=== PATIENT | male | born 1995 | race Caucasian/White ===

== ENCOUNTER 2017-02-23 01:14 | Emergency (ER) | payer BC ==
[~2017-02-23] VITALS: Ht 177.8 cm; Wt 75.0 kg
[~2017-02-23 01:14] MED LIST: CETITAB27 PO
--- NOTE | 2017-02-23 01:24 | EMERGENCY ROOM VISIT NOTE ---
History Report prepared by Scribe: Naya Agrawal Under the Supervision of: Dr. Ryan Rivera M.D. First contact with patient: 01:16 Chief Complaint: ALCOHOL OVERDOSE Stated Complaint: ALCOHOL OVERDOSE History of Present Illness The patient is a 21 year old male who presents to the Emergency Room by EMS for a episode of alcohol overdose. The patient notes he feels fine. He states he has been to the ED previously for an alcohol overdose. Per EMS staff, the patient was found laying in a parking lot. Source of History: patient History Limited By: intoxication Onset: just prior to arrival Timing: other (episode) Review of Systems ROS limited secondary to intoxication Past Medical & Surgical Medical Problems: (1) No Known Active Medical Problems Family History no pertinent family history stated Social History Smoking Status: Unknown if Ever Smoked Alcohol Use: occasionally Occupation Status: student Current/Historical Medications No Active Prescriptions or Reported Meds Allergies Coded Allergies: Erythromycin (Verified Allergy, Intermediate, RASH, 02/23/17) Nut Tree (Verified Allergy, Unknown, ANAPHYLAXIS, 04/24/16) Physical Exam Vital Signs Date Time Temp Pulse Resp B/P (MAP) Pulse Ox O2 Delivery O2 Flow Rate FiO2 02/23/17 06:00 96/50 02/23/17 05:35 76 18 96 Room Air 02/23/17 05:30 95/37 02/23/17 05:12 76 02/23/17 05:05 78 15 96 Room Air 02/23/17 05:00 92/43 02/23/17 04:35 77 17 94 02/23/17 04:30 98/40 02/23/17 04:05 76 19 95 Room Air 02/23/17 04:00 93/40 02/23/17 03:35 73 18 94 02/23/17 03:30 98/47 02/23/17 03:05 83 16 97 02/23/17 03:00 98/50 02/23/17 02:49 73 16 98 Room Air 02/23/17 02:42 106/57 02/23/17 02:30 106/57 02/23/17 02:24 101/59 02/23/17 02:19 78 17 97 02/23/17 02:14 78 15 98 Room Air 02/23/17 02:01 101/59 02/23/17 01:44 92 16 97 02/23/17 01:27 102 8/23/17 01:26 36.4 101 18 114/74 98 Room Air 02/23/17 01:25 114/74 Physical Exam GENERAL: Patient is intoxicated. Smells of alcohol. Well appearing and in no acute distress. Somewhat contradictory, vomit covering left side of body HEAD: No evidence of Trauma. AT/NC EYES: injected conjunctiva. Normal EOM. Pupils equal/reactive. ENT: Mucous membranes moist, no nasal congestion, . NECK: No step-offs, no adenopathy, no meningismus, trachea is midline. LUNGS: No dyspnea. Clear to auscultation and equal bilaterally. No wheeze, no rhonchi. HEART: Regular rate and rhythm. No murmurs, rubs, gallops appreciated. ABDOMEN: Soft, nontender, bowel sounds positive, no masses appreciated, no peritonitis. BACK: No midline tenderness, no CVA tenderness EXTREMITIES: Normal motion all extremities, no cyanosis, no edema. NEUROLOGIC: Intoxicated. interactive Alert, oriented. No acute motor or sensory deficits, no focal weakness, cranial nerves grossly intact. SKIN: No rash, no jaundice, no diaphoresis. Medical Decision & Procedures Laboratory Results 02/23/17 01:30 Test 02/23/17 01:30 Anion Gap 4.0 mmol/L (3-11) Est Creatinine Clear Calc Drug Dose 151.5 ml/min Estimated GFR () 149.3 Estimated GFR (Non- 128.8 BUN/Creatinine Ratio 16.3 (10-20) Calcium Level 8.5 mg/dl (8.5-10.1) Ethyl Alcohol mg/dL 204.0 mg/dl (0-3) Laboratory results as reviewed by me. ED Course 0120: The patient was evaluated in room B12A. A complete history and physical exam was performed. 0218: I offered the patient to call friends to pick him up. The patient declined and said he wanted to stay in the ED. 0403: The patient is sleeping. 0440: The patient is sleeping. The patient was discharged when sober. Medical Decision Differential: Alcohol Intoxication, Drug Intoxication, Electrolyte Abnormality, Trauma, Intracranial Event, Toxicological, Excited Delirium, Serotonin Syndrome , amongst other pathologies entertained. 21 yr old intoxicated male brought in by EMS after being found sleeping in parking lot on [address] Vomited apparently at some point prior to EMS though no respiratory issues. Apparently was sleeping with pillow in the parking lot. Patient with no evidence nor history for trauma. Protecting airway and breathing comfortably throughout ED stay. EtOH positive. Monitored and discharged when awake, alert, oriented and denies any complaints. Discussed my concerns regarding this being second ED trip for intoxication and stressed his need to stop drinking alcohol. Medication Reconcilliation Current Medication List: was personally reviewed by me Blood Pressure Screening Patient's blood pressure: Normal blood pressure Blood pressure disposition: Did not require urgent referral Impression Primary Impression: Alcohol abuse Additional Impression: Alcohol intoxication Scribe Attestation The scribe's documentation has been prepared under my direction and personally reviewed by me in its entirety. I confirm that the note above accurately reflects all work, treatment, procedures, and medical decision making performed by me. Departure Information Dispostion Home / Self-Care Prescriptions No Active Prescriptions or Reported Meds Patient Instructions My [facility] Additional Instructions You were evaluated in emergency department for intoxication. This is a sign of Alcohol Abuse and should not be taken lightly. You had a blood alcohol level that was significantly elevated. Furthermore, this is the second time you have been to this Emergency Department within a year which is even more concerning. Over the next 24 hours keep well hydrated and eat light meals. Don't drink any more alcohol. This is important. Please discuss this visit with your Primary Care Provider, [facility] and/or your loved ones. Unless an exceptional circumstance, the Hospital DOES NOT contact anyone DURING your visit, nor is your Protected Medical Information released to anyone without your approval/request. This means we do not contact your Parents, the Police, etc. However, you will likely receive a bill from the Hospital and/or your Insurance company, which will usually be sent to the Primary Policy Kyle (often one's Parents). Furthermore, as a student, your visit report will likely be sent to [facility] as your primary care provider, unless other Provider listed. If your incident was on campus, or if the Police were involved, they will often contact the University to make them aware of what happened. Often this will result in you being required to take Alcohol Education classes (ie BASICS class) . Please see information given to you at discharge regarding contact for this. If the Police were involved you will likely be cited for public intoxication. Please contact either [facility] Police or the [place] Police for further information. Call 911 or return to Emergency Department if you develop: Passing out, difficulty breathing, many episodes of vomiting, blood in vomit or stool, abdominal pain, fevers, or other severe symptoms. We are always here to help if you feel you need further evaluation or treatment. Problem Qualifiers
[2017-02-23 01:26] VITALS: Ht 177.8 cm; Wt 75.0 kg
[2017-02-23 02:07] LABS: BUN/CREATININE RATIO 16.3 (10-20); CALCIUM 8.5 mg/dl (8.5-10.1); CREATININE 0.81 mg/dl (0.60-1.40); POTASSIUM 3.8 mmol/L (3.5-5.1)
[2017-02-23 06:50] VITALS: BP 98/56; PULSE 77; TEMP 36.4; O2SAT 96
== END 2017-02-23 06:45 | disposition home or self-care (01) ==
LOC: EDBD 01:14 → C.EDB 01:16
DX: F10.129 Alcohol abuse with intoxication, unspecified (principal)